=== PATIENT | female | born 2005 | race Caucasian/White ===

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

== ENCOUNTER 2025-02-09 03:59 | Emergency (ER) | payer OTHER, SELFPAY ==
[2025-02-09 04:02] VITALS: BP 187/118; PULSE 118; RESP 16; TEMP 36; O2SAT 99
--- NOTE | 2025-02-09 04:04 | ED_ITS ---
HPI - Abdominal Pain General Chief Complaint: Abdominal Pain Stated Complaint: ibs Time Seen by Provider: 02/09/25 04:03 Source: patient Mode of arrival: ambulatory Limitations: no limitations History of Present Illness HPI narrative: 19-year-old female with a history of IBS presents to the ED with a 1 hour history of -- upper abdominal pain. The pain woke her up from a sleep. Patient has nausea without any vomiting. No diarrhea. No chills or fever. No history of abdominal surgeries.. No radiation of the pain. No exacerbating or relieving factors. MD elicited complaint: abdominal pain Pertinent past history: other ( IBS) Onset (ago): hour(s) ( 1 hour) Pain Consistency: constant Location: other ( upper abdomen) Severity: severe Quality: cramping and aching Radiation: none Migration to: no migration Exacerbating factors: nothing Relieving factors: nothing Associated symptoms: denies other symptoms and nausea Related Data Date of Last Menstrual Period: 01/26/25 Patient : No Allergies Allergy/AdvReac Type Severity Reaction Status Date / Time No Known Allergies Allergy Verified 02/09/25 04:11 Review of Systems 2 Review of Systems: All systems reviewed & are unremarkable except as noted in HPI and below Constitutional: Constitutional: Reports as per HPI and Reports no additional constitutional complaints Eyes: Eyes: Reports as per HPI and Reports no additional eye complaints ENT: Reports system reviewed and no additional complaints, except as documented and Reports as per HPI Cardiovascular: Cardiovascular: Reports as per HPI and Reports no additional cardiovascular complaints Respiratory: Respiratory: Reports as per HPI and Reports no additional respiratory complaints Gastrointestinal: Gastrointestinal: Reports as per HPI, Reports no additional gastrointestinal complaints, Reports abdominal pain and Reports nausea Genitourinary: Genitourinary: Reports no additional female genitourinary complaints and Reports as per HPI Musculoskeletal: Musculoskeletal: Reports no additional musculoskeletal complaints and Reports as per HPI Integumentary/Breasts: Skin/Breast: Reports system reviewed and no additional complaints, except as docu and Reports as per HPI Neurologic: Reports system reviewed and no additional complaints, except as documented and Reports as per HPI Psychiatric: Psychiatric: Reports no additional psychiatric complaints and Reports as per HPI Endocrine: Endocrine: Reports no additional endocrine complaints and Reports as per HPI Hematologic/Lymphatic: Hematologic/Lymphatic: Reports no additional hematologic/lymphatic complaints and Reports as per HPI Allergic/Immunologic: Allergic/Immunologic: Reports no additional allergic/immunologic complaints and Reports as per [facility] Past Medical History Medical History (Updated 02/09/25 @ 05:38 by Joe Cortez MD) IBS (irritable bowel syndrome) Social History Social History (Updated 02/09/25 @ 04:14 by Joe Cortez MD) Social History: nonsmoker. No history of alcohol use. Exam 2 Narrative: Blood pressure 180/Min/ 118 with a heart rate of 118. Afebrile. Oxygen saturation of 99% on room air. Const: General: no acute distress Nutritional Appearance: well nourished Orientation/consciousness: patient oriented x3 Limitations: no limitations HENMT: Head: normal to inspection Ears: external ears normal F crystal/Nose/Sinus: Normal external nose present Face and sinus: normal facial exam Mouth: Yes Normal oral and palatal mucosa present Throat: posterior oropharynx normal Eyes: Conjunctivae: conjunctivae normal Pupils: Equal, round and reactive pupils present EOM: EOMs intact bilaterally Direct Ophthalmoscopy: no photophobia Neck: Neck: normal visual inspection, no lymphadenopathy and no meningeal signs Chest: Chest palpation & inspection: normal inspection of the chest Resp: Effort & Inspection: normal respiratory effort Auscultation: clear to auscultation bilaterally Cardio: Rate: regular rate Rhythm: regular rhythm GI: GI Palp: Yes Soft to palpation Auscultation: normal bowel sounds O ther: No tenderness/rigidity / rebound. : General: Yes no CVA tenderness Back/Spine/Pelvis: Back: no CVA tenderness Skin: General skin exam: normal color Rashes: no rashes Wounds: no wounds Neuro: General: patient oriented x3, moves all extremities, no meningeal signs, no focal motor deficits and CN's II-XI intact bilaterally Cranial nerves: Yes Nystagmus not present Speech: normal speech Extrem: General: normal to inspection and no clubbing, cyanosis or edema Psych: Mental Status: mental status grossly normal Affect: normal affect Attitude: cooperative Course Course Emergency Course: Upper abdominal pain-- abdominal examination is unremarkable. Patient is afebrile. Patient has a white cell count of 11.6 with a neutrophil of 58%. Lactate is normal at 1.4. improvement of her symptoms with Compazine 10. Offered to give Toradol 30 but the patient refused. Vital Signs Vital signs: Vital Signs Temperature 36.0 C L 02/09/25 04:02 Pulse Rate 118 H 02/09/25 04:02 Respiratory Rate 16 02/09/25 04:02 Blood Pressure 187/118 H 02/09/25 04:02 Pulse Oximetry 99 02/09/25 04:02 Oxygen Delivery Room Air 02/09/25 04:02 Temperature 36.0 C L 02/09/25 04:02 Pulse Rate 118 H 02/09/25 04:02 Respiratory Rate 16 02/09/25 04:02 Blood Pressure 187/118 H 02/09/25 04:02 Pulse Oximetry 99 02/09/25 04:02 Oxygen Delivery Room Air 02/09/25 04:02 MDM - Abdominal Pain MDM Narrative Medical decision making narrative: Abdominal pain Differential Diagnosis Differential diagnosis: Likely pancreatitis Lab Data Attestation: I reviewed the patient's lab results. 02/09/25 04:49 02/09/25 04:49 Labs: Lab Results 02/09/25 02/09/25 Range/Units 04:49 04:59 WBC 11.6 H (4.8-10.8) K/mm3 RBC 4.48 (4.20-5.40) M/mm3 Hgb 13.8 (12.0-15.0) g/dL Hct 41.1 (35.0-49.0) % MCV 91.7 (78.0-102.0) fL MCH 30.8 (27.0-31.0) pg MCHC 33.6 (32-36) g/dL RDW 12.4 (11.6-14.4) % Plt Count 312 (150-420) K/mm3 MPV 9.7 (9.2-11.8) fl Immature Gran % (Auto) 0.4 H (0.0-0.0) % Neut % (Auto) 58.2 (50.0-70.0) % Lymph % (Auto) 34.9 (18.0-42.0) % [place] % (Auto) 5.1 (2.0-11.0) % Eos % (Auto) 0.9 L (1.0-6.0) % Baso % (Auto) 0.5 (0.0-1.0) % Lymph # (Auto) 4.05 (1.10-4.50) K/mm3 [place] # (Auto) 0.59 (0.10-0.90) K/mm3 Eos # (Auto) 0.10 (0.02-0.50) K/mm3 Baso # (Auto) 0.06 (0.00-0.10) K/mm3 Abs Immat Gran (auto) 0.05 H (0.00-0.00) K/mm3 Absolute Neuts (auto) 6.74 (1.70-7.20) K/mm3 Absolute Nucleated RBC 0.00 (0.00-0.00) K/mm3 Nucleated RBC % 0.0 (0-0.0) % PT 9.7 (9.50-12.1) Seconds INR 0.9 Sodium 142 (137-145) mmol/L Potassium 4.0 (3.4-5.0) mmol/L Chloride 104 (98-107) mmol/L Carbon Dioxide 26 (22-30) mmol/L Anion Gap 12 (4-12) mmol/L BUN 13 (7-17) mg/dL Creatinine 0.53 L (0.7-1.0) mg/dL Estim Creat Clear Calc 153 ml/min Estimated GFR > 60 (59 - ) Glucose 124 H (65-110) mg/dL Calculated Osmolality 295 (285-295) mOsm/kg Lactic Acid 1.4 (0.4-2.0) mmol/L Calcium 10.2 (8.4-10.2) mg/dL Total Bilirubin 0.5 (0.2-1.3) mg/dL AST 23 (14-36) U/L ALT 14 (6-35) U/L Alkaline Phosphatase 57 (38-126) U/L Total Protein 8.2 (6.3-8.2) g/dL Albumin 4.4 (3.5-5.1) g/dL Lipase 123 (23-300) U/L Urine Color Yellow (Yellow) Urine Appearance Sl cloudy A (Clear) Urine pH 6.0 (5.0-8.0) Ur Specific [place] 1.025 H (1.010-1.020) Urine Protein Trace H (Negative) Urine Glucose (UA) Negative (Negative) Urine Ketones 1+ H (Negative) Ur Blood (Man) Negative (Negative) Urine Nitrate Negative (Negative) Urine Bilirubin Negative (Negative) Urine Urobilinogen 0.2 (0.2-1.0) mg/dL Leukocyte Esterase Rfl Negative (Negative) HETAL/UL Urine RBC None seen (0-2) /hpf Urine WBC 0-5 (0-3) /hpf Ur Squamous Epith Cells Many H (Few) /hpf Urine Bacteria 1+ H (None) /hpf Urine Mucus Moderate H /lpf Urine Test Negative Discharge Plan Discharge Clinical Impression: Abdominal pain Qualifiers: Abdominal location: upper abdomen, unspecified Qualified Code(s): R10.10 - Upper abdominal pain, unspecified Patient Disposition: Home Condition: Stable Instructions: Antibiotic Form, Abdominal Pain (ED) Patient Language: Serbian Follow-up/Referrals: [place],Kathleen Pillai MD [Primary Care Provider, Unknown] Time of Disposition: 05:38
--- OUTSIDE RECORDS SUMMARY | 2025-02-09 04:17 | XMS_ITS | Encounter Summary ---
Author Organization [facility] Address [facility] [place] [address] Care Team Providers Care Dirt Supervisor Name Role Phone Chris Urbina MD Primary Care Provider Sedrick Velazquez MD Unavailable [phone] Kathleen Haynes MD Unavailable [phone] Encounter Details Date Type Department Care Team ([facility] Contact Info) Description 02/02/2025 Poppin Message Enc [facility] [address] [place] [address] [facility] Provider heart monitor results Social History Tobacco Use Types Packs/Day Years Used Date Smoking Tobacco: Never Smokeless Tobacco: Never Alcohol Use Standard Drinks/Week Comments Never 0 (1 standard drink = 0.6 oz pur e alcohol) Comments No Sex and Gender Information Value Date Recorded Sex Assigned at Female 10/31/2024 7:49 AM CDT Legal Sex Female 4:28 PM [employer] Gender Identity Not on file Sexual Orientation Not on file documented as of this encounter Plan of Treatment Upcoming Encounters Date Type Department Care Team (Late Contact Info) Description 03/21/2025 8:30 AM CDT Office Visit [facility] [place] [address] Sedrick Velazquez MD [address] [facility] [address] [place], [place] [id number] documented as of this encounter Visit Diagnoses Not on filedocumented in this encounter Care Teams Dirt Supervisor Relationship Specialty Start Date End Date Chris Urbina MD [address] [place] [phone] PCP - General FAMILY PRACTICE 07/12/21 Sedrick Velazquez MD [address] [facility] [address] [address] Physician INTERVENTIONAL CARDIOLOGY 11/30/24 Kathleen Haynes MD [address] [place] [phone] Physician FAMILY PRACTICE 11/30/24 documented as of this encounter
[2025-02-09] MEDS: PROCHLORPERAZINE EDISYLATE 10 MG/2 ML VIAL IM (04:21)
[2025-02-09 04:54] LABS: Hematocrit 41.1 % (35.0-49.0); Hemoglobin 13.8 g/dL (12.0-15.0); Immature Granulocyte Percent A 0.4 % (0.0-0.0); Lymphocytes Absolute Auto 4.05 K/mm3 (1.10-4.50); Mean Corpuscular HGB Conc 33.6 g/dL (32-36); Mean Corpuscular Hemoglobin 30.8 pg (27.0-31.0); Mean Corpuscular Volume 91.7 fL (78.0-102.0); Nucleated Red Blood Cells Absolute Auto 0.00 K/mm3 (0.00-0.00); Nucleated Red Blood Cells Perc 0.0 % (0-0.0); Platelet Count Result 312 K/mm3 (150-420); Red Blood Count 4.48 M/mm3 (4.20-5.40); White Blood Count 11.6 K/mm3 (4.8-10.8)
[2025-02-09 05:07] LABS: Alanine Aminotransferase 14 U/L (6-35); Albumin Level 4.4 g/dL (3.5-5.1); Alkaline Phosphatase 57 U/L (38-126); Anion Gap 12 mmol/L (4-12); Aspartate Amino Transferase 23 U/L (14-36); Bilirubin,Total 0.5 mg/dL (0.2-1.3); Blood Urea Nitrogen 13 mg/dL (7-17); Calcium 10.2 mg/dL (8.4-10.2); Carbon Dioxide 26 mmol/L (22-30); Chloride 104 mmol/L (98-107); Estimated CRCL calculation 153 ml/min; Estimated Glomerular Filt Rate > 60; Glucose 124 mg/dL (65-110); Lipase 123 U/L (23-300); Osmolality Calculated 295 mOsm/kg (285-295); Potassium 4.0 mmol/L (3.4-5.0); Sodium 142 mmol/L (137-145); Total Protein 8.2 g/dL (6.3-8.2)
[2025-02-09 05:08] LABS: Add Urine Microscopic? YES; Glucose Urine UA Negative (Negative); Leukocyte Esterase Ur Negative LEU/UL (Negative); Nitrate Urine Negative (Negative); Specific Grav Ur 1.025 (1.010-1.020)
[2025-02-09 05:09] LABS: Pregnancy On Board Control Positive
[2025-02-09 05:14] LABS: INR 0.9; Prothrombin Time 9.7 Seconds (9.50-12.1)
[2025-02-09 05:14] LABS: Appearance Urine Sl Cloudy (Clear)
[2025-02-09 05:47] VITALS: BP 130/88; PULSE 88; RESP 18; O2SAT 97
== END 2025-02-09 05:47 | disposition home or self-care (01) ==
PROVIDERS: Emergency Provider Internal Medicine Critical Care Medicine; PCP Family Medicine
DX: R10.10 Upper abdominal pain, unspecified (principal)
CPT/HCPCS: 36415; 80053; 81001; 81025; 83605; 83690; 85025; 85610; 96372; 99283; J0780